=== PATIENT | male | born 1965 | race Caucasian/White ===

== ENCOUNTER 2017-04-21 06:44 | Emergency (ER) | payer BC ==
[~2017-04-21] VITALS: Ht 172.7 cm; Wt 157.2 kg
[~2017-04-21 06:44] MED LIST: ADULT LOW DOSE81 M1 PO; ADVAIR HFA120 INHALA IH; ALDACTONE50 MG PO; AMLODIPINE BESY10 MG PO; ASPIR 8181 M1 PO; ASPIRIN81 M1 PO; BACTRIM,SEPT1 TABLET PO; BENICAR40 MG PO; BENICAR5 MG PO; BUMEX1 MG PO; BUTALBITAL-ACE1 EACH PO; CARDURA2 M1 PO; CARVEDILOL25 MG PO; CATAPRES0.2 MG PO; CLONIDINE HCL0.2 MG PO; CLONIDINE HCL0.3 MG PO; COLACE100 MG PO; COMBIVENT200 INHALA IH; CRESTOR10 MG PO; DIOVAN HCT 31 TABLET PO; DOXAZOSIN MESYLA1 MG PO; DOXYCYCLINE HY100 MG PO; DULERA 100 MCG/13 GM IH; FLUOXETINE HCL40 MG PO; FUROSEMIDE40 MG PO; GABAPENTIN300 MG PO; GOLD BOND MED56.6 GM TP; HUMULIN 70100 UNIT/2 SC; HUMULIN 70100 UNIT/2 SQ; HUMULIN R100 UNITS/; HUMULIN R100 UNITS/ SC; HYDRALAZINE HC100 MG PO; HYDRALAZINE HCL50 MG PO; IMITREX100 MG PO; IMITREX50 MG PO; INSULIN PUMP SCCONT; KLOR-CON 1010 ME1 PO; LABETALOL HCL100 MG PO; LANTUS 10100 UNITS/ IM/SC; LANTUS 10100 UNITS/ SC; LANTUS100 UNIT/1 SQ; LASIX40 MG PO; LEVAQUIN750 MG PO; LEVEMIR100 UNIT/2 SQ; LINZESS145 MCG PO; LIPITOR20 MG PO; LIPITOR40 MG PO; LO-DOSE ASPIRIN81 M1 PO; LOSARTAN-HCTZ1 EAC1 PO; Lipitor PO; METAXALONE800 MG PO; METOLAZONE5 MG PO; METRONIDAZOLE500 MG PO; NIFEDIPINE ER60 MG PO; NOVOLIN,HU100 UNITS/ SC; NovoLIN,Humulin 70/3 SC; PANTOPRAZOLE SO40 MG PO; PERCOCET 5/31 TABLET PO; PREDNISONE10 MG PO; PREDNISONE50 MG PO; PROAIR HFA8.5 GM IH; PROAIR RESPICL90 MCG IH; PROTONIX40 MG PO; PROZAC40 MG PO; REGLAN10 MG PO; SKELAXIN800 MG PO; SPIRIVA RESPIMAT4 GM IH; TAMIFLU75 MG PO; TESSALON200 MG PO; TRAMADOL HCL50 MG PO; TRANDATE200 MG PO; TYLENOL EXTRA500 MG PO; TYLENOL WITH C1 EACH PO; ULTRAM50 MG PO; VALIUM5 MG PO; VICODIN,LORT1 TABLET PO; ZOFRAN ODT4 MG PO
[2017-04-21] MEDS ORDERED: ENDOCET 5-3251 EACH PO (07:33)
[2017-04-21] MEDS ORDERED: METAMUCIL0.52 GM PO (07:33)
[2017-04-21] MEDS ORDERED: COLACE100 MG PO (07:33)
[2017-04-21] MEDS ORDERED: ICY HOT1 EAC1 TP (07:33)
[2017-04-21] MEDS ORDERED: ROBAXIN750 MG PO (07:33)
[2017-04-21] MEDS ORDERED: RECTICARE30 GM TP (07:33)
[2017-04-21 07:43] VITALS: BP 144/68
== END 2017-04-21 07:43 | disposition home or self-care (01) ==
LOC: EME 06:44
DX: M54.9 Dorsalgia, unspecified (principal); K64.9 Unspecified hemorrhoids; E11.9 Type 2 diabetes mellitus without complications; E78.5 Hyperlipidemia, unspecified; G47.30 Sleep apnea, unspecified; Z96.41 Presence of insulin pump (external) (internal); Z79.82 Long term (current) use of aspirin; Z87.891 Personal history of nicotine dependence
CPT/HCPCS: 99281; 99283

== ENCOUNTER 2017-06-01 19:00 | Emergency (ER) | payer BC ==
[~2017-06-01] VITALS: Ht 170.2 cm; Wt 153.9 kg
[~2017-06-01 19:00] MED LIST changes: +ENDOCET 5-3251 EACH PO; +ICY HOT1 EAC1 TP; +METAMUCIL0.52 GM PO; +RECTICARE30 GM TP; +ROBAXIN750 MG PO
[2017-06-01 19:40] LABS: HEMATOCRIT 38.5 % (38.0-50.0); MCH 28.5 PG (29.0-34.0); MCHC 32.2 G/DL (30.0-36.0); MCV 88.5 FL (86-99); MEAN PLAT.VOLUME 9.7 uM^3 (9.0-12.4); PLATELET COUNT 257 K/uL (156-360); RBC DIS.WIDTH-CV 13.7 % (11.8-14.6); RBC DIS.WIDTH-SD 44.8 % (39-53); RED BLOOD COUNT 4.35 M/uL (4.00-5.50); WHITE BLOOD COUNT 12.6 K/uL (4.1-10.2)
[2017-06-01 19:49] LABS: CHLORIDE 108 mEq/L (99-109); POTASSIUM 4.6 mEq/L (3.7-5.4); SODIUM 140 mEq/L (136-147)
[2017-06-01 19:51] LABS: GLUCOSE 174 mg/dL (70-99)
[2017-06-01 19:52] LABS: ANION GAP 12 MEQ/L (2-14)
[2017-06-01 19:53] LABS: TOTAL BILIRUBIN 0.5 mg/dL (0.0-1.0)
[2017-06-01 19:54] LABS: ALKALINE PHOSPHATASE 92 IU/L (3-129)
[2017-06-01 19:55] LABS: GFR ESTIMATE (CALCULATED) 36 mL/min/
[2017-06-01 19:56] LABS: UREA NITROGEN (BUN) 37 mg/dL (9-23)
[2017-06-01 20:41] LABS: ADD MIUA? YES; BILIRUBIN NEGATIVE; BLOOD NEGATIVE; COLOR YELLOW ((YELLOW)); GLUCOSE (STRIP) NEGATIVE; KETONES NEGATIVE; LEUKOCYTES NEGATIVE; NITRITE NEGATIVE; PROTEIN (STRIP) 100; SPECIFIC GRAVITY 1.023 (1.000-1.030); UROBILINOGEN 0.2 MG/DL (0.2-1.0)
[2017-06-01 21:09] LABS: BACTERIA NONE SEEN /HPF; EPITHELIAL CELLS RARE /HPF; HYALINE CASTS 0-5 /LPF; MUCUS TRACE /LPF; RED BLOOD CELLS 0-5 /HPF (0-5); UCUL ADDED? NO; WHITE BLOOD CELLS 0-5 /HPF (0-5)
[2017-06-01 21:41] LABS: LIPASE 28 U/L (1.0-51.0)
[2017-06-01 23:16] LABS: C DIFF TOXIN POSITIVE (NEGATIVE)
[2017-06-01 23:18] LABS: PROBE CHECK PASS
[2017-06-01] MEDS ORDERED: FLAGYL500 MG PO (23:38)
[2017-06-01] MEDS ORDERED: BENTYL20 MG PO (23:38)
[2017-06-01] MEDS ORDERED: ZOFRAN ODT4 MG PO (23:38)
[2017-06-01 23:54] VITALS: BP 131/88
== END 2017-06-01 23:55 | disposition home or self-care (01) ==
LOC: EME 19:00
PROVIDERS: Physician Assistant
DX: A04.7 Enterocolitis due to Clostridium difficile (principal); I12.9 Hypertensive chronic kidney disease with stage 1 through stage 4 chronic kidney disease, or unspecified chronic kidney disease; E11.22 Type 2 diabetes mellitus with diabetic chronic kidney disease; N18.9 Chronic kidney disease, unspecified; E78.5 Hyperlipidemia, unspecified; K21.9 Gastro-esophageal reflux disease without esophagitis; J44.9 Chronic obstructive pulmonary disease, unspecified; F32.9 Major depressive disorder, single episode, unspecified; F41.9 Anxiety disorder, unspecified; Q60.0 Renal agenesis, unilateral; Z96.41 Presence of insulin pump (external) (internal); Z79.4 Long term (current) use of insulin; Z87.891 Personal history of nicotine dependence; Z98.84 Bariatric surgery status
CPT/HCPCS: 74176; 80053; 81003; 82010; 83605; 83690; 85027; 87493; 87506; 99281; 99284; J0500; J2405; J7030